=== PATIENT | female | born 1990 | race Caucasian/White ===

== ENCOUNTER 2016-12-26 20:05 | Emergency (ER) | payer MEDICAID ==
[2016-12-26] MEDS ORDERED: cefTRIAXone 1 GM Vial IM ONE (20:22)
--- NOTE | 2016-12-26 20:22 | EDM.PDOC ---
ED HPI GENERAL MEDICAL PROBLEM - General Chief Complaint: ENT Problem Stated Complaint: tooth pain Time Seen by Provider: 12/26/16 20:15 Source of Information: Reports: Patient, Old Records ([facility] EMR. No paper hospital chart available.) History Limitations: Reports: No Limitations - History of Present Illness INITIAL COMMENTS - FREE TEXT/NARRATIVE: The patient was brought to the emergency room via private automobile by her friend for evaluation of progressive left lower dental pain and jaw swelling with symptoms starting at about 20:00 hours yesterday evening. The patient did take Aleve yesterday evening with 1000 g of Tylenol taken this morning. She does have a history of extremely poor dentition with no recent history of dental injury. The patient also denies any recent fever, cough, wheezing, dyspnea, etc.. No recent history of abdominal pain, heartburn, nausea, diarrhea , melena, gross hematochezia, or any food intolerance, including fatty foods, etc.. Onset: Gradual Onset Date: 12/25/16 Onset Time: 20:00 Duration: Constant, Getting Worse Location: Reports: Face (Dentition as above). 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 Denies: Allergic Rhinitis, Hard of Hearing Other HEENT History: Poor dentition; patient is not wearing her glasses Cardiovascular History: Reports: Other (See Below). Denies: Afib, Aneurysm, Arrhythmia, Blood Clots/VTE/DVT, CAD, Heart Murmur, Hypertension Other Cardiovascular History: Preeclampsia with as below with no previous history of hypertension Respiratory History: Reports: None. 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 Denies: Suicide Attempt Other Psychiatric History: Only brief 2 hour hospitalization for suicidal ideation Social & Family History - Tobacco Use Smoking Status *Q: Current Every Day Smoker Tobacco Use Within Last Twelve Months: Cigarettes Years of Tobacco use: 13 Packs/Tins Daily: 1 (Started smoking at age 13) Used Tobacco, but Quit: Yes Smoking Cessation Information Provided To Patient: Yes Second Hand Smoke Exposure: No Second Hand Smoke Education Provided: No - Living Situation & Occupation Living situation: Reports: Single, with Family (Child) Occupation: Unemployed ED ROS GENERAL - Review of Systems Review Of Systems: ROS reveals no pertinent complaints other than HPI. ED EXAM, GENERAL - Physical Exam Exam: See Below Exam Limited By: No Limitations General Appearance: Alert, WD/WN, No Apparent Distress Eye Exam: Bilateral Eye: EOMI, Normal Inspection (No nystagmus), PERRL Ears: Normal External Exam, Normal Canal, Hearing Grossly Normal, Normal TMs Nose: Normal Inspection, Normal Mucosa, No Blood Throat/Mouth: Normal Lips. No: Normal Teeth (Extremely poor dentition with multiple broken teeth into the gumline and caries bilaterally with mild to moderate abscess in the left lower fifth and sixth teeth with severe caries as above and some gingival and jaw swelling in this area but no drainage), Normal Gums Head: Atraumatic, Normocephalic, Facial Swelling (Left mandibular region as above), Facial Tenderness (Left mandibular region as above). No: Sinus Tenderness Neck: Normal Inspection, Supple, Non-Tender, Full Range of Motion. No: Lymphadenopathy (L), Lymphadenopathy (R), Thyromegaly Respiratory/Chest: No Respiratory Distress, Lungs Clear, Normal Breath Sounds, No Accessory Muscle Use, Chest Non-Tender Cardiovascular: Normal Peripheral Pulses, Regular Rate, Rhythm, No Edema, No Gallop, No JVD, No Murmur, No Rub. No: Tachycardia (Resolved at time of exam), Gallop/S3, Gallop/S4, Friction Rub Peripheral Pulses: 2+: Radial (L), Radial (R) GI/Abdominal: Normal Bowel Sounds, Soft, Non-Tender, No Organomegaly, No Distention, No Abnormal Bruit, No Mass (Female) Exam: Deferred Rectal (Female) Exam: Deferred Back Exam: Normal Inspection, Full Range of Motion, NT Extremities: Normal Inspection, Normal Range of Motion, Non-Tender, Normal Capillary Refill, No Pedal Edema Neurological: Alert, Oriented, CN II-XII Intact, Normal Cognition, Normal Gait, No Motor/Sensory Deficits Psychiatric: Normal Affect, Normal Mood Skin Exam: Warm, Dry, Intact, Normal Color, No Rash. No: Diaphoretic, Increased Warmth, Lymphangitis, Rash Lymphatic: No Adenopathy Course - Vital Signs Last Recorded V/S: Last Vital Signs Temp 36.5 C 12/26/16 20:05 Pulse 117 H 12/26/16 20:05 Resp 18 12/26/16 20:05 BP 136/84 12/26/16 20:05 Pulse Ox 100 12/26/16 20:05 Vital Signs - 24 hr 12/26/16 20:05 Temperature [ 36.5 C Oral] Pulse, 117 H Peripheral [ Left Brachial] Pulse, 120 H Peripheral [ Left Radial] Respiratory 18 Rate Blood Pressure 136/84 [Left Upper Arm ] O2 Sat by Pulse 100 Oximetry - Orders/Labs/Meds Orders: Active Orders 24 hr Category Date Time Status Obtain Past Medical Record [OM.PC] Routine Oth 12/26/16 20:22 Active Labs: None Meds: Medications Discontinued Medications Generic Name Dose Route Start Last Admin Trade Name Freq PRN Reason Stop Dose Admin Ceftriaxone Sodium 1 gm 12/26/16 20:22 12/26/16 20:27 Rocephin IM 12/26/16 20:23 1 gm ONETIME ONE Administration Ketorolac Tromethamine 60 mg 12/26/16 20:23 12/26/16 20:28 Toradol IM 12/26/16 20:24 60 mg ONETIME ONE Administration Lidocaine HCl 5 ml 12/26/16 20:23 12/26/16 20:27 Xylocaine-Mpf 1% INJECT 12/26/16 20:24 2.1 ml ONETIME ONE Administration - Radiology Interpretation Free Text/Narrative:: None Departure - Departure Time of Disposition: 20:45 Disposition: Home, Self-Care 01 Clinical Impression: Dental abscess, Tobacco abuse counseling, Mixed anxiety depressive disorder - Discharge Information Prescriptions: Amoxicillin/Clavulanate K [Augmentin 875 MG/125 MG] 1 tab PO Q12HR #20 tablet Instructions: Dental Abscess, [id number], Dental Caries, [id number] Referrals: PCP,None [Primary Care Provider] - Forms: ED Department Discharge Additional Instructions: 1. Follow-up with your dentist GENO as discussed with multiple tooth extractions required 2. Tylenol 650 mg by mouth every 4 hours and/or OTC Aleve 1-2 tabs by mouth every 12 hours with food as directed./needed. Next dose of Aleve in 6 hours as needed secondary to medications given in the emergency room 3. Listerine gargles four times per day, after meals and at bedtime, with additional Chloroseptic lozenges or spray as needed for 10 days and/or until symptoms resolve. 4. Stop all tobacco use GENO as directed/per provided information and consider contacting Quit LIne, etc.. 5. Close follow-up of blood pressure and pulse by your regular provider with recommended repeat blood pressure and pulse check within the next 10-14 days - Problem List & Annotations (1) Dental abscess SNOMED Code(s): 444225213 Code(s): K04.7 - PERIAPICAL ABSCESS WITHOUT SINUS Status: Acute Priority : High Onset Date: ~12/25/16 Annotation/Comment:: Extremely poor dentition as above with multiple tooth extractions required. IM Toradol and IM Rocephin given in the emergency room with initiation of Augmentin therapy in an outpatient basis. Oral hygiene, etc. discussed. (2) Tobacco abuse counseling SNOMED Code(s): 144204616, 717222488 Code(s): Z71.6 - TOBACCO ABUSE COUNSELING Status: Chronic Priority: Medium Annotation/Comment:: Tobacco cessation strongly encouraged with information provided at discharge (3) Mixed anxiety depressive disorder SNOMED Code(s): 394055642 Code(s): F41.8 - OTHER SPECIFIED ANXIETY DISORDERS Status: Chronic Priority: Medium Annotation/Comment:: Stable by patient history with no current medical therapy - Problem List Review Problem List Initiated/Reviewed/Updated: Yes - My Orders Last 24 Hours: My Active Orders 12/26/16 20:22 Obtain Past Medical Record [OM.PC] Routine - Assessment/Plan Last 24 Hours: My Active Orders 12/26/16 20:22 Obtain Past Medical Record [OM.PC] Routine Assessment:: As above. Plan: As above. Extensive precautions were given to the patient, who is in agreement with the treatment plan. See Patient Instructions for further treatment and plan.
[2016-12-26] MEDS ORDERED: Ketorolac 60 MG/2 ML SDV IM ONE (20:23)
== END 2016-12-26 20:48 | disposition home or self-care (01) ==
LOC: LL.ED 20:05
DX: K04.7 Periapical abscess without sinus (principal); F41.8 Other specified anxiety disorders; F17.210 Nicotine dependence, cigarettes, uncomplicated; Z71.6 Tobacco abuse counseling
CPT/HCPCS: 96372; 99282; J0696; J1885